=== PATIENT | female | born 1990 | race African-American/Black ===

== ENCOUNTER 2018-04-01 01:04 | Emergency (ER) | payer SELFPAY ==
[~2018-04-01] VITALS: Ht 167.6 cm; Wt 106.6 kg
[2018-04-01 01:11] VITALS: Ht 167.6 cm; Wt 106.6 kg
[2018-04-01 04:06] VITALS: BP 116/63
== END 2018-04-01 04:06 | disposition home or self-care (01) ==
LOC: ED 01:04
DX: S39.012A Strain of muscle, fascia and tendon of lower back, initial encounter (principal); W01.0XXA Fall on same level from slipping, tripping and stumbling without subsequent striking against object, initial encounter; Y93.89 Activity, other specified; Y92.89 Other specified places as the place of occurrence of the external cause; Y99.8 Other external cause status
CPT/HCPCS: J1885